=== PATIENT | female | born 1975 | race Caucasian/White ===

== ENCOUNTER 2019-09-27 16:40 | Inpatient (IN) | payer MEDICAID ==
[2019-09-27] VITALS (24 sets, daily range): BP systolic 119; BP diastolic 64; PULSE 96; TEMP 97.4; O2SAT 97–100
[~2019-09-27] VITALS: Ht 160 cm; Wt 54.5 kg
[~2019-09-27 16:40] MED LIST: AMITRIPTYLINE H25 M1 PO; BENADRYL25 M2 PO; CATAPRES 0.1MG0.1 MG PO; CULTURELLE10 Billion PO; FERROUS SULFATE65 MG PO; LEVSIN 0.10.125 MG/T PO; PERCOCET 325 MG1 TA3 PO; PHENERGAN 25 TA25 MG PO; PRILOSEC 20MG20 MG PO; SKELAXIN 800MG800 MG PO; VOLTAREN 50MG T50 MG PO; WELLBUTRIN SR150 M1 PO; ZADITOR 5 ML5 ML OU; ZOFRAN 4MG T4 MG/TAB PO; ZYRTEC ALLERGY10 MG PO
[2019-09-27 17:32] LABS: BASO # 0.1 (0.0-0.2); BASO % 0.3 % (0.0-2.0); EOS # 0.1 (0.0-0.7); EOS % 0.6 % (0-4.0); GRAN # 14.3 (1.4-6.5); GRAN % 88.8 % (42.2-75.2); HEMATOCRIT 38.9 % (37.0-47.0); HEMOGLOBIN 12.3 g/dl (12.5-16.0); LYMPH # 0.9 (1.2-3.4); LYMPH % 5.5 % (20.0-51.0); MEAN CELL VOLUME 88 fl (80.0-100.0); MEAN CORPUSCULAR HEMOGLOBIN 28 pg (27.0-31.0); MEAN CORPUSCULAR HGB CONC 32 g/dl (33.0-37.0); MEAN PLATELET VOLUME 8.9 fl (7.4-10.4); MONO # 0.6 (0.1-0.6); PLATELET COUNT 344 K/mm3 (130-400); RED BLOOD COUNT 4.41 M/mm3 (4.10-5.30); REDCELL DISTRIBUTION WIDTH-CV 13.9 % (11.5-14.5)
[2019-09-27] MEDS ORDERED: CANASA 1000MG1000 MG (17:37)
[2019-09-27] MEDS ORDERED: PREDNISONE1 MG (17:38)
[2019-09-27] MEDS ORDERED: PRINIVIL10 MG PO (17:38)
[2019-09-27] MEDS ORDERED: SKELAXIN 800MG800 MG PO (17:39)
[2019-09-27] MEDS ORDERED: NEURONTIN300 MG/CAP PO (17:39)
[2019-09-27] MEDS ORDERED: FIORICET 325 MG1 TA1 PO (17:40)
[2019-09-27] MEDS ORDERED: RESTORIL 1515 MG/CAP PO (17:40)
[2019-09-27 17:56] LABS: ALBUMIN 4.3 gm/dL (3.5-5.0); BILIRUBIN,TOTAL 0.3 mg/dL (0.0-1.0); C-REACTIVE PROTEIN 0.7 mg/dL (0.0-0.9); CALCIUM 8.9 mg/dL (8.4-10.2); CREATININE, serum 0.74 (0.52-1.25); POTASSIUM 3.9 mmol/L (3.4-5.0); TOTAL PROTEIN 7.4 gm/dL (6.4-8.2)
[2019-09-27 19:27] LABS: COLLECTION METHOD CLEAN CATCH
[2019-09-27 19:39] LABS: MUCOUS Present /lpf; PH 8 (5-8); URINE APPEARANCE Cloudy; URINE BACTERIA Moderate /hpf; URINE BILIRUBIN Negative (NEGATIVE); URINE BLOOD Negative (NEGATIVE); URINE COLOR Yellow; URINE GLUCOSE Negative (NEGATIVE); URINE KETONE Negative (NEGATIVE); URINE LEUKOCYTE ESTERASE Trace (NEGATIVE); URINE NITRATE Negative (NEGATIVE); URINE PROTEIN(semi-quant) Negative (NEGATIVE); URINE UROBILINOGEN Negative (NEGATIVE)
[2019-09-27 22:22] LABS: MAGNESIUM 2.1 mg/dL (1.6-2.3); PHOSPHOROUS 2.4 mg/dL (2.5-4.5)
[2019-09-27] MEDS ORDERED: BENTYL 20MG20 MG/TAB PO (22:26)
[2019-09-27] MEDS ORDERED: ERGOCALCIFER50000 IU PO (22:26)
[2019-09-27] MEDS ORDERED: WELLBUTRIN XL150 MG PO (22:28)
[2019-09-27] MEDS ORDERED: WELLBUTRIN XL300 M1 PO (22:28)
[2019-09-27] MEDS ORDERED: PRIL40 PO (22:32)
[2019-09-27] MEDS ORDERED: FERROUSAL325 MG PO (22:34)
[2019-09-27] MEDS ORDERED: MUCINEX 60600 MG/TA1 PO (22:36)
[2019-09-28] VITALS (767 sets, daily range): BP systolic 99–145; BP diastolic 70–76; PULSE 91–103; TEMP 97.7–98; O2SAT 83–100
[2019-09-28 02:29] LABS: BASO % 0.3 % (0.0-2.0); EOS # 0.2 (0.0-0.7); EOS % 1.3 % (0-4.0); GRAN # 10.9 (1.4-6.5); GRAN % 85.6 % (42.2-75.2); HEMATOCRIT 31.5 % (37.0-47.0); HEMOGLOBIN 9.8 g/dl (12.5-16.0); LYMPH % 7.6 % (20.0-51.0); MEAN CELL VOLUME 89 fl (80.0-100.0); MEAN CORPUSCULAR HEMOGLOBIN 28 pg (27.0-31.0); MEAN CORPUSCULAR HGB CONC 31 g/dl (33.0-37.0); MONO # 0.6 (0.1-0.6); MONO % 4.6 % (1.7-9.3); PLATELET COUNT 290 K/mm3 (130-400); RED BLOOD COUNT 3.53 M/mm3 (4.10-5.30); REDCELL DISTRIBUTION WIDTH-CV 14.2 % (11.5-14.5)
[2019-09-28 02:43] LABS: CALCIUM 7.8 mg/dL (8.4-10.2); CREATININE, serum 0.56 (0.52-1.25); POTASSIUM 3.7 mmol/L (3.4-5.0)
[2019-09-28 09:34] LABS: HEMOGLOBIN 10.2 g/dl (12.5-16.0)
[2019-09-28 09:57] LABS: HEMATOCRIT 33.2 % (37.0-47.0)
[2019-09-29] VITALS (568 sets, daily range): BP systolic 121–141; BP diastolic 68–92; PULSE 80–108; TEMP 97.8–98.6; O2SAT 88–100
[2019-09-29 03:41] LABS: BASO % 0.2 % (0.0-2.0); EOS # 0.1 (0.0-0.7); EOS % 1.7 % (0-4.0); GRAN # 6.5 (1.4-6.5); GRAN % 79.1 % (42.2-75.2); LYMPH # 1.1 (1.2-3.4); LYMPH % 12.7 % (20.0-51.0); MEAN CELL VOLUME 90 fl (80.0-100.0); MEAN CORPUSCULAR HGB CONC 31 g/dl (33.0-37.0); MEAN PLATELET VOLUME 8.8 fl (7.4-10.4); MONO # 0.5 (0.1-0.6); MONO % 5.8 % (1.7-9.3); PLATELET COUNT 261 K/mm3 (130-400); RED BLOOD COUNT 3.34 M/mm3 (4.10-5.30); REDCELL DISTRIBUTION WIDTH-CV 13.9 % (11.5-14.5)
[2019-09-29 03:42] LABS: HEMOGLOBIN 9.2 g/dl (12.5-16.0); MEAN CORPUSCULAR HEMOGLOBIN 28 pg (27.0-31.0)
[2019-09-29 03:53] LABS: CALCIUM 7.6 mg/dL (8.4-10.2); CREATININE, serum 0.54 (0.52-1.25); PHOSPHOROUS 2.4 mg/dL (2.5-4.5); POTASSIUM 3.2 mmol/L (3.4-5.0)
--- NOTE | 2019-09-29 16:46 | NUR ---
[employer] student met with the patient to complete initial intake. The patient lives in [place] with her and three kids. The patient denies DME usage and reports independence with ADLs. The patient receives medical care from Jack in and receives medications from [facility] in . The patient does not have advanced directives in the EMR. Form provided. The patient plans to return home at discharge. There are no additional needs at this time.
--- NOTE | 2019-09-29 19:30 | NUR ---
Received report from ADEN Farley.
[2019-09-30] VITALS (10 sets, daily range): BP systolic 122–148; BP diastolic 71–88; PULSE 71–98; TEMP 97.8–98.7
--- NOTE | 2019-09-30 05:52 | NUR ---
Report called to ADEN Uribe.
--- NOTE | 2019-09-30 06:20 | NUR ---
Patient transferred to medical room 317. Contact made with receiving nurse, Jojo. Care transferred at this time.
[2019-09-30 06:29] LABS: BASO % 0.3 % (0.0-2.0); EOS % 0.4 % (0-4.0); GRAN # 7.4 (1.4-6.5); GRAN % 72.5 % (42.2-75.2); LYMPH # 1.9 (1.2-3.4); MEAN CELL VOLUME 90 fl (80.0-100.0); MEAN CORPUSCULAR HGB CONC 31 g/dl (33.0-37.0); MEAN PLATELET VOLUME 9.2 fl (7.4-10.4); MONO # 0.7 (0.1-0.6); MONO % 7.2 % (1.7-9.3); PLATELET COUNT 278 K/mm3 (130-400); RED BLOOD COUNT 3.38 M/mm3 (4.10-5.30); REDCELL DISTRIBUTION WIDTH-CV 14.2 % (11.5-14.5)
[2019-09-30 06:43] LABS: ANION GAP 6 mmol/L (7-16); CARBON DIOXIDE 29 mmol/L (22-30); CHLORIDE 108 mmol/L (98-107); CREATININE, serum 0.57 (0.52-1.25); GLUCOSE 86 mg/dL (74-106); SODIUM 143 mmol/L (137-145)
[2019-09-30 06:47] LABS: BLOOD UREA NITROGEN < 2 mg/dL (7-17)
[2019-09-30 06:48] LABS: POTASSIUM 2.8 mmol/L (3.4-5.0)
[2019-09-30 06:54] LABS: HEMATOCRIT 30.3 % (37.0-47.0); HEMOGLOBIN 9.3 g/dl (12.5-16.0); MEAN CORPUSCULAR HEMOGLOBIN 28 pg (27.0-31.0)
--- NOTE | 2019-09-30 10:47 | NUR ---
Assessment complete. Pt resting in bed. States she is quite a bit of pain. PRN pain medication was provided. This helped. IV site is CD&I. PT has been done with bowel prep for colonoscopy since 0 this morning and has had approx 13 bowel movements since coming to the floor this morning, she states that have been clear. Endo is aware. Her is currently at the bedside. She is aware of her POC at this time. No further needs. Call light in place.
--- NOTE | 2019-09-30 17:23 | NUR ---
Pt had a good day aside from her pain. She tolerated the colonoscopy well. Was able to advance her diet as she was very hungry. PRN pain medication has been used throughout the day. has been at bedside most of the day. She is aware of what went on in the surgery. She showered this morning before her procedure. He potassium was originally IV due to NPO status but with the Magnesium as well and then her going to the procedure only one had been completed by about 1530. Called pharmacy and they were able to switch her to PO tablets to finish off the course. Will place order for lab to recheck in 3 hours after last admin. No further needs expressed call light in reach.
--- NOTE | 2019-09-30 21:00 | NUR ---
Received report from ADEN Chandra. Assessment complete. Alert and oriented. at bedside. C/O pain to abdomen, rate 7/10, describes pain as sharp, aching, rolling pain. PRN pain meds administered as requested by pt. Scheduled meds administered. IV to LAC intact with fluids infusing. Tele monitor in place, leads checked. Needs attended too. Call light within reach.
[2019-10-01 03:30] VITALS: BP 124/80; PULSE 83; TEMP 98.3
--- NOTE | 2019-10-01 04:08 | NUR ---
Pt informed this RN that she had small amount of blood on fingertips after applying hemorrhoid cream to anal area, no continuos bleeding noted. Pt to inform RN if further bleeding occurs. Pt requested PRN pain meds for abdominal pain, rate 7-8/10. PRN Dilaudid administered as requested. Needs met. call light within reach.
[2019-10-01 06:17] LABS: BASO % 0.3 % (0.0-2.0); EOS # 0.1 (0.0-0.7); EOS % 0.6 % (0-4.0); GRAN # 6.1 (1.4-6.5); GRAN % 76.5 % (42.2-75.2); LYMPH # 1.3 (1.2-3.4); LYMPH % 16.3 % (20.0-51.0); MEAN CELL VOLUME 90 fl (80.0-100.0); MEAN CORPUSCULAR HGB CONC 31 g/dl (33.0-37.0); MEAN PLATELET VOLUME 9.2 fl (7.4-10.4); MONO # 0.5 (0.1-0.6); MONO % 5.8 % (1.7-9.3); PLATELET COUNT 263 K/mm3 (130-400); RED BLOOD COUNT 3.49 M/mm3 (4.10-5.30); REDCELL DISTRIBUTION WIDTH-CV 14.3 % (11.5-14.5)
[2019-10-01 06:32] LABS: CALCIUM 8.4 mg/dL (8.4-10.2); CREATININE, serum 0.56 (0.52-1.25); HEMATOCRIT 31.4 % (37.0-47.0); HEMOGLOBIN 9.6 g/dl (12.5-16.0); MAGNESIUM 2.3 mg/dL (1.6-2.3); MEAN CORPUSCULAR HEMOGLOBIN 28 pg (27.0-31.0); POTASSIUM 3.1 mmol/L (3.4-5.0)
--- NOTE | 2019-10-01 06:32 | NUR ---
Pt requested PRN [place] for abdominal pain. PRN [place] and PRn Zanaflex administered as requested by pt. Needs met.Call light within reach. at bedside.
[2019-10-01 07:02] VITALS: BP 147/85; PULSE 65; TEMP 98.4
--- NOTE | 2019-10-01 07:04 | NUR ---
Report given to ADEN Juares.
--- NOTE | 2019-10-01 07:50 | NUR ---
Lying in bed with eyes open. Alert and oriented x4. Rates pain 4/10 in abd, describes as crampy, sharp, rolling, piercing pain when it acts up. No stools this morning. Denies needs at this time.
--- NOTE | 2019-10-01 10:00 | NUR ---
Patient attempted to get to bathroom to have BM but it was loose and did not make it completely to bathroom. Assisted in cleaning up. Patient did have loose stool with separate blood clots in the stool. Dr. Flores was making rounds and is aware. Patient requests pain medication via IV at this time. Student nurse to administer.
--- NOTE | 2019-10-01 10:35 | NUR ---
Student nurse, Cira, administers Dilaudid as prescribed. Patient would like to rest in bed and once the medication begins to work would like to take shower.
--- NOTE | 2019-10-01 11:26 | NUR ---
Patient done in shower. Tele and IV fluids reconnected. Rating pain in abd 4/10, which she says is tolerable at this time. Patient denies further needs.
--- NOTE | 2019-10-01 11:52 | NUR ---
Continues to rate pain 4/10 in abd and describes as crapmy. Patient denies any needs at this time.
[2019-10-01 12:20] VITALS: BP 136/84; PULSE 74; TEMP 98.4
--- NOTE | 2019-10-01 12:39 | NUR ---
Nya adminsitered by student nurse, Cira, per patient request as prescribed.
--- NOTE | 2019-10-01 13:59 | NUR ---
Primary nurse was assisted with [phone] patient care by [facility] student Cira Sharif and [facility] instructor Orquidea Cancino RN-.
[2019-10-01] MEDS ORDERED: NORCO 325 MG-51 TAB PO (15:20)
[2019-10-01] MEDS ORDERED: PREDNISONE20 MG PO (15:20)
[2019-10-01] MEDS ORDERED: DIFLUCAN150 MG PO (15:40)
[2019-10-01] MEDS ORDERED: LEVAQUIN 750MG750 M1 PO (15:40)
[2019-10-01] MEDS ORDERED: FLAGYL500 MG PO (15:40)
--- NOTE | 2019-10-01 16:06 | NUR ---
IV site discontinued with catheter intact. Applied 2x2 to site and reinforced with coban. Patient to get dressed at this time for discharge.
--- NOTE | 2019-10-01 16:16 | NUR ---
Discharge instructions reviewed with the patient. Questions answered. Patient signs discharge paperwork. Discharge packet provided to the patient. Patient will use call light when spouse arrives to pick her up. Denies needs at this time.
--- NOTE | 2019-10-01 16:45 | NUR ---
Patient spouse here to take patient home. Patient assisted out to POV via wheelchair by IAIN Jara.
== END 2019-10-01 16:46 | disposition home or self-care (01) | DRG 385 ==
LOC: COL.ER 16:40 → IMCU 20:09 → MEDICAL 20:09
PROVIDERS: Emergency Medicine; Internal Medicine; Internal Medicine Gastroenterology; Nurse Practitioner Family; Physician Assistant; ADMIT Student in an Organized Health Care Education/Training Program
PROC: 0DBL8ZX Excision of Transverse Colon, Via Natural or Artificial Opening Endoscopic, Diagnostic (ICD-10-PCS; 2019-09-30)
PROC: 0DBN8ZX Excision of Sigmoid Colon, Via Natural or Artificial Opening Endoscopic, Diagnostic (ICD-10-PCS; 2019-09-30)
PROC: 0DBH8ZX Excision of Cecum, Via Natural or Artificial Opening Endoscopic, Diagnostic (ICD-10-PCS; principal; 2019-09-30 14:00)
DX: K51.811 Other ulcerative colitis with rectal bleeding (principal); A41.9 Sepsis, unspecified organism; Z79.52 Long term (current) use of systemic steroids; Z86.19 Personal history of other infectious and parasitic diseases; N83.202 Unspecified ovarian cyst, left side; I10 Essential (primary) hypertension; F32.9 Major depressive disorder, single episode, unspecified; K21.9 Gastro-esophageal reflux disease without esophagitis; E87.6 Hypokalemia; D50.0 Iron deficiency anemia secondary to blood loss (chronic); E83.42 Hypomagnesemia
CPT/HCPCS: 99222-AI; 99231-AI; 99232-AI; 99239; C9113; J1170; J1450; J1720; J1956; J2405; J2704; J3010; J3475; J3480; J7030; Q9967

== ENCOUNTER 2020-03-01 16:32 | Inpatient (IN) | payer MEDICAID ==
[~2020-03-01] VITALS: Ht 160 cm; Wt 78.7 kg
[~2020-03-01 16:32] MED LIST changes: +BENTYL 20MG20 MG/TAB PO; +CANASA 1000MG1000 MG; +DIFLUCAN150 MG PO; +ERGOCALCIFER50000 IU PO; +FERROUSAL325 MG PO; +FIORICET 325 MG1 TA1 PO; +FLAGYL500 MG PO; +LEVAQUIN 750MG750 M1 PO; +MUCINEX 60600 MG/TA1 PO; +NEURONTIN300 MG/CAP PO; +NORCO 325 MG-51 TAB PO; +PREDNISONE1 MG; +PREDNISONE20 MG PO; +PRIL40 PO; +PRINIVIL10 MG PO; +RESTORIL 1515 MG/CAP PO; +VANCOCIN H125 MG/CAP PO; +VITAMIN C500 MG PO; +WELLBUTRIN XL150 MG PO; +WELLBUTRIN XL300 M1 PO
[2020-03-01 17:18] LABS: BASO % 0.5 % (0.0-2.0); EOS # 0.1 (0.0-0.7); EOS % 1.4 % (0-4.0); GRAN # 5.3 (1.4-6.5); GRAN % 66.9 % (42.2-75.2); HEMATOCRIT 40.1 % (37.0-47.0); HEMOGLOBIN 13.1 g/dl (12.5-16.0); LYMPH # 1.8 (1.2-3.4); LYMPH % 23.2 % (20.0-51.0); MEAN CELL VOLUME 91 fl (80.0-100.0); MEAN CORPUSCULAR HEMOGLOBIN 30 pg (27.0-31.0); MEAN CORPUSCULAR HGB CONC 33 g/dl (33.0-37.0); MEAN PLATELET VOLUME 10.2 fl (7.4-10.4); MONO # 0.6 (0.1-0.6); MONO % 7.6 % (1.7-9.3); PLATELET COUNT 283 K/mm3 (130-400); RED BLOOD COUNT 4.39 M/mm3 (4.10-5.30); REDCELL DISTRIBUTION WIDTH-CV 14.1 % (11.5-14.5)
[2020-03-01 17:25] LABS: ALANINE AMINOTRANSFERASE 14 U/L (4-34); ALBUMIN 4.4 gm/dL (3.5-5.0); ALKALINE PHOSPHATASE 65 U/L (50-136); ANION GAP 9 mmol/L (7-16); AST,SGOT 17 U/L (15-37); BILIRUBIN,TOTAL 0.3 mg/dL (0.0-1.0); BLOOD UREA NITROGEN 6 mg/dL (7-17); CARBON DIOXIDE 25 mmol/L (22-30); CHLORIDE 107 mmol/L (98-107); CREATININE, serum 0.77 (0.52-1.25); GLUCOSE 112 mg/dL (74-106); LIPASE 78 U/L (23-300); POTASSIUM 3.3 mmol/L (3.4-5.0); SODIUM 140 mmol/L (137-145); TOTAL PROTEIN 7.6 gm/dL (6.4-8.2)
[2020-03-01 17:30] LABS: C-REACTIVE PROTEIN < 0.5 mg/dL (0.0-0.9)
[2020-03-01 17:46] LABS: COLLECTION METHOD CLEAN CATCH
[2020-03-01 17:54] LABS: PH 6 (5-8); SQUAMOUS EPITHELIAL 0-2 /hpf; URINE APPEARANCE Hazy; URINE BACTERIA Many /hpf; URINE BILIRUBIN Negative (NEGATIVE); URINE BLOOD Negative (NEGATIVE); URINE COLOR Straw; URINE GLUCOSE Negative (NEGATIVE); URINE KETONE Negative (NEGATIVE); URINE LEUKOCYTE ESTERASE Negative (NEGATIVE); URINE NITRATE Negative (NEGATIVE); URINE PROTEIN(semi-quant) Negative (NEGATIVE); URINE UROBILINOGEN Negative (NEGATIVE)
[2020-03-01] MEDS ORDERED: HUMIRA PEN40 MG/0.4 SQ (19:53)
[2020-03-01] MEDS ORDERED: PENTASA500 MG PO (19:53)
[2020-03-01] MEDS ORDERED: IMODIUM 2MG CAPS2 MG PO (19:54)
[2020-03-01] MEDS ORDERED: LOMOTIL 0.025 M1 TAB PO (19:54)
[2020-03-01] MEDS ORDERED: RESTORIL 1515 MG/CAP PO (19:55)
[2020-03-01] MEDS ORDERED: LIPITOR20 MG PO (19:55)
[2020-03-01] MEDS ORDERED: ISOPTIN SR120 MG PO (19:56)
[2020-03-01] MEDS ORDERED: FIORICET 325 MG1 TA1 PO (19:57)
[2020-03-01] MEDS ORDERED: WELLBUTRIN XL300 M1 PO (19:57)
[2020-03-01] MEDS ORDERED: MASON NATURAL2000 IU PO (19:59)
--- NOTE | 2020-03-01 20:30 | NUR ---
Received patient via wheelchair from ED. Patient is alert and oriented. With INT on left AC. She is independent. On room air. Assesment and med rec done. Lungs are clear. With abdominal pain at 6/10. Dilaudid given at ER at 2000H. Instructed patient to use the hat in the toilet for GI panel sample. Call light within reach.
[2020-03-01 21:35] VITALS: BP 135/84; PULSE 90; TEMP 98.3
[2020-03-01 22:57] LABS: BASO # 0.1 (0.0-0.2); BASO % 0.4 % (0.0-2.0); GRAN # 12.7 (1.4-6.5); GRAN % 92.7 % (42.2-75.2); HEMATOCRIT 38.4 % (37.0-47.0); HEMOGLOBIN 12.6 g/dl (12.5-16.0); LYMPH # 0.7 (1.2-3.4); LYMPH % 5.3 % (20.0-51.0); MEAN CELL VOLUME 91 fl (80.0-100.0); MEAN CORPUSCULAR HEMOGLOBIN 30 pg (27.0-31.0); MEAN CORPUSCULAR HGB CONC 33 g/dl (33.0-37.0); MEAN PLATELET VOLUME 10.2 fl (7.4-10.4); MONO # 0.2 (0.1-0.6); MONO % 1.2 % (1.7-9.3); PLATELET COUNT 263 K/mm3 (130-400); REDCELL DISTRIBUTION WIDTH-CV 14.2 % (11.5-14.5)
[2020-03-02] VITALS (7 sets, daily range): BP systolic 132–157; BP diastolic 75–99; PULSE 80–97; TEMP 97.3–98.2
--- NOTE | 2020-03-02 06:14 | NUR ---
Patient haven't had any bowel movement since she came up from ER. She did say taht she feels like her abdomen is starting to swell again and she received Decadron at the ER. Informed Monique PEREZ via phone call and said that since she didn't poop yet they don't want to give any steroids for now. Explained to patient and she verbalizes understanding.
[2020-03-02 07:47] LABS: CALCIUM 9.1 mg/dL (8.4-10.2); CREATININE, serum 0.6 (0.52-1.25); POTASSIUM 3.9 mmol/L (3.4-5.0)
--- NOTE | 2020-03-02 09:21 | NUR ---
Pt awake and alert upon entry this morning, has some C/O pain, medications given for relief, talkative. Shift assessments complete, left Pt call light in reach, bed in lowest position.
--- NOTE | 2020-03-02 13:06 | NUR ---
Pt has C/O pain 02/03, pain medication given for relief.
--- NOTE | 2020-03-02 15:06 | NUR ---
The patient is on contact precautions. SW contacted the patient to discuss discharge plan. The patient lives in [place] with her , Jani (ph#[phone]), and three children. She reports needing occasional assistance with ADLs when her Crohn's flairs up. She states that her is able to help her, when she does have a flair up. She does not have any DME. The patient's PCP is Dr. Maia Alfonso and she receives her medications at [facility] in [place]. She reports no difficulties obtaining her meds. The patient does not have advanced directives, but she was interested in obtaining a form for DPOA-HC. MOO provided the form to her RN, Ar. Ar brought the form into the patient. The patient plans to return home with her family upon discharge. No additional needs at this time.
--- NOTE | 2020-03-02 19:00 | NUR ---
Received report from Ar. Seen patient on the bedside, eating her dinner. She's currently on bowel prep. Instructed patient she's NPO midnight except for bowel prep. With IV on left AC infusing LR at 150ml/hr.
--- NOTE | 2020-03-02 19:12 | NUR ---
Pt resting in the room, has had some C/O pain and nausea during the day, no other issues noted, first part of bowel prep for colonoscopy started this evening. VS have remained stable.
--- NOTE | 2020-03-02 20:10 | NUR ---
Patient complains of pain 9/10, after having a bowel movement. Dilaudid PRN given.
[2020-03-03 03:38] VITALS: BP 146/89; PULSE 75; TEMP 98
--- NOTE | 2020-03-03 06:23 | NUR ---
Patient had finished her bowel prep and had a clear bowel movement. Consent has been signed last night. Still with abdominal pain of 6/10. Will endorse to day shift nurse.
--- NOTE | 2020-03-03 08:14 | NUR ---
Pt awake an alert this morning, fluids changed to NS for procedure, medications given with sip of water, bowel prep complete, Pt clear. Shift assessment complete, left Pt call light in reach, bed in lowest position.
[2020-03-03 10:37] LABS: HEMATOCRIT 38.7 % (37.0-47.0); HEMOGLOBIN 12.3 g/dl (12.5-16.0); MEAN CELL VOLUME 94 fl (80.0-100.0); MEAN CORPUSCULAR HEMOGLOBIN 30 pg (27.0-31.0); MEAN CORPUSCULAR HGB CONC 32 g/dl (33.0-37.0); MEAN PLATELET VOLUME 10.3 fl (7.4-10.4); PLATELET COUNT 244 K/mm3 (130-400); RED BLOOD COUNT 4.11 M/mm3 (4.10-5.30); REDCELL DISTRIBUTION WIDTH-CV 14.6 % (11.5-14.5)
[2020-03-03 10:47] LABS: ALANINE AMINOTRANSFERASE 16 U/L (4-34); ALBUMIN 4.2 gm/dL (3.5-5.0); ALKALINE PHOSPHATASE 65 U/L (50-136); ANION GAP 8 mmol/L (7-16); AST,SGOT 17 U/L (15-37); BILIRUBIN,TOTAL 0.3 mg/dL (0.0-1.0); BLOOD UREA NITROGEN < 2 mg/dL (7-17); CALCIUM 8.8 mg/dL (8.4-10.2); CARBON DIOXIDE 25 mmol/L (22-30); CHLORIDE 107 mmol/L (98-107); CREATININE, serum 0.51 (0.52-1.25); GLUCOSE 96 mg/dL (74-106); MAGNESIUM 1.7 mg/dL (1.6-2.3); PHOSPHOROUS 3.4 mg/dL (2.5-4.5); POTASSIUM 3.6 mmol/L (3.4-5.0); SODIUM 140 mmol/L (137-145); TOTAL PROTEIN 7.2 gm/dL (6.4-8.2)
[2020-03-03 12:30] VITALS: BP 135/87; PULSE 74; TEMP 98
[2020-03-03 16:22] VITALS: BP 140/77; PULSE 82; TEMP 98.3
[2020-03-03 20:00] VITALS: BP 136/86; PULSE 81; TEMP 98
--- NOTE | 2020-03-03 20:30 | NUR ---
Initial shift assessment done- states abd pain 8/10,visibly uncomfortable, will give pain meds as ordered, VSS, states continues with liquid clear stools since her colonsocopy.
[2020-03-03 23:23] VITALS: BP 127/66; PULSE 84; TEMP 97.9
[2020-03-04 03:48] VITALS: BP 119/65; PULSE 77; TEMP 97.8
--- NOTE | 2020-03-04 05:39 | NUR ---
Quiet night- states pain meds help keep her abd pain to 4/10 which helped her to get some sleep-VSS, no requests at this time
[2020-03-04 06:57] LABS: BASO % 0.4 % (0.0-2.0); EOS % 0.4 % (0-4.0); GRAN # 6.7 (1.4-6.5); HEMOGLOBIN 11.9 g/dl (12.5-16.0); LYMPH # 1.1 (1.2-3.4); LYMPH % 12.9 % (20.0-51.0); MEAN CELL VOLUME 93 fl (80.0-100.0); MEAN CORPUSCULAR HEMOGLOBIN 30 pg (27.0-31.0); MEAN CORPUSCULAR HGB CONC 33 g/dl (33.0-37.0); MEAN PLATELET VOLUME 10.6 fl (7.4-10.4); MONO # 0.4 (0.1-0.6); MONO % 4.8 % (1.7-9.3); PLATELET COUNT 232 K/mm3 (130-400); RED BLOOD COUNT 3.92 M/mm3 (4.10-5.30); REDCELL DISTRIBUTION WIDTH-CV 14.6 % (11.5-14.5)
[2020-03-04 07:14] LABS: ALBUMIN 3.9 gm/dL (3.5-5.0); BILIRUBIN,TOTAL 0.3 mg/dL (0.0-1.0); CALCIUM 8.8 mg/dL (8.4-10.2); CREATININE, serum 0.58 (0.52-1.25); MAGNESIUM 1.8 mg/dL (1.6-2.3); PHOSPHOROUS 3.6 mg/dL (2.5-4.5); POTASSIUM 3.5 mmol/L (3.4-5.0); TOTAL PROTEIN 6.6 gm/dL (6.4-8.2)
[2020-03-04 07:35] LABS: HEMATOCRIT 36.6 % (37.0-47.0)
--- NOTE | 2020-03-04 08:18 | NUR ---
PATIENT ASSESSMENT COMPLETED. SHE COMPLAINS OF LOWER ABDOMEN PAIN. PRN DILAUDID GIVEN FOR THIS. DENIES NAUSEA AT THIS TIME.
[2020-03-04 08:20] VITALS: BP 127/72; PULSE 78; TEMP 98
--- NOTE | 2020-03-04 10:52 | NUR ---
PATIENT REQUEST ANOTHER PAIN PILL HAS TAKEN HER SHOWER AND IS HURTING. HAVING MULTIPLE LOOSE STOOLS
[2020-03-04 11:39] VITALS: BP 120/76; PULSE 84; TEMP 98.5
--- NOTE | 2020-03-04 14:31 | NUR ---
PRN LOMITOL AND IMMODIUM GIVEN PER DR. ANGEL OK.
--- NOTE | 2020-03-04 15:09 | NUR ---
PATIENT RESTING IN BED TALKING ON PHONE WITH . DENIES OTHER NEEDS AT THIS TIME. WATER REFILLED.
[2020-03-04 16:39] VITALS: BP 132/79; PULSE 90; TEMP 97.5
--- NOTE | 2020-03-04 17:28 | NUR ---
REQUESTED NORCO PROVIDED AT THIS TIME
[2020-03-04 19:54] VITALS: BP 112/60; PULSE 86; TEMP 98.1
--- NOTE | 2020-03-04 20:30 | NUR ---
Initial shift assessment done- states abd pain 4/10-tolerable at this time,, VSS,given immodium amd lomotil prn for liquid stools-states that is what works for her at home,,, hoping to go home tomorrow.
[2020-03-04 23:55] VITALS: BP 142/88; PULSE 77; TEMP 98.1
[2020-03-05 04:05] VITALS: BP 123/74; PULSE 91; TEMP 97.4
--- NOTE | 2020-03-05 05:28 | NUR ---
Quiet night- did get [place] x1 during this shift for abd pain , pt states diarrhea is less frequent and less intensity with the lomotil and immodium. VSS
[2020-03-05 07:43] VITALS: BP 127/84; PULSE 81; TEMP 97.7
--- NOTE | 2020-03-05 08:21 | NUR ---
PATIENT ASSESSMENT COMPLETED. SHE FEELS ALOT BETTER. PRN NORCO PROVIDED FOR PAIN.
[2020-03-05 08:25] LABS: BASO % 0.2 % (0.0-2.0); EOS % 0.1 % (0-4.0); GRAN # 11.8 (1.4-6.5); GRAN % 85.7 % (42.2-75.2); HEMATOCRIT 39.7 % (37.0-47.0); HEMOGLOBIN 13.1 g/dl (12.5-16.0); LYMPH # 1.1 (1.2-3.4); LYMPH % 7.7 % (20.0-51.0); MEAN CELL VOLUME 94 fl (80.0-100.0); MEAN CORPUSCULAR HEMOGLOBIN 31 pg (27.0-31.0); MEAN CORPUSCULAR HGB CONC 33 g/dl (33.0-37.0); MEAN PLATELET VOLUME 11.2 fl (7.4-10.4); MONO # 0.8 (0.1-0.6); MONO % 5.8 % (1.7-9.3); PLATELET COUNT 253 K/mm3 (130-400); RED BLOOD COUNT 4.24 M/mm3 (4.10-5.30); REDCELL DISTRIBUTION WIDTH-CV 14.6 % (11.5-14.5)
[2020-03-05 08:50] LABS: ALBUMIN 4.5 gm/dL (3.5-5.0); BILIRUBIN,TOTAL 0.3 mg/dL (0.0-1.0); CREATININE, serum 0.51 (0.52-1.25); MAGNESIUM 2.1 mg/dL (1.6-2.3); PHOSPHOROUS 3.9 mg/dL (2.5-4.5); POTASSIUM 3.8 mmol/L (3.4-5.0); TOTAL PROTEIN 7.7 gm/dL (6.4-8.2)
[2020-03-05] MEDS ORDERED: DIFLUCAN 100MG100 MG PO (10:14)
[2020-03-05] MEDS ORDERED: NORCO 325 MG-51 TAB PO (10:15)
[2020-03-05] MEDS ORDERED: PREDNISONE20 MG PO (10:19)
--- NOTE | 2020-03-05 11:05 | NUR ---
DISCHARGE INFORMATION GIVEN TO PATIENT. SHE DENIES QUESTIONS ABOUT DISCHARGE. SHE WILL MAKE FOLLOW UPS WITH DR. EMIL SIMMONS AND DR. WEISS. IV DC WITH CATH INTACT. PATIENT TO THE SHOWER PER REQUEST
--- NOTE | 2020-03-05 11:50 | NUR ---
PATIENT DISCHARGED TO HOME WITH BELONGINGS. BROUGHT TO THE ER DOOR AND PICKED HER UP. NO OTHER NEEDS EXPRESSED
== END 2020-03-05 11:50 | disposition home or self-care (01) | DRG 387 ==
LOC: COL.ER 16:32 → MEDICAL 18:41
PROVIDERS: Family Medicine; Nurse Practitioner Family; Student in an Organized Health Care Education/Training Program; ADMIT Student in an Organized Health Care Education/Training Program
PROC: 0DBN8ZX Excision of Sigmoid Colon, Via Natural or Artificial Opening Endoscopic, Diagnostic (ICD-10-PCS; principal; 2020-03-01)
DX: K50.90 Crohn's disease, unspecified, without complications (principal); F32.9 Major depressive disorder, single episode, unspecified; I10 Essential (primary) hypertension; E78.5 Hyperlipidemia, unspecified; K52.9 Noninfective gastroenteritis and colitis, unspecified; K60.1 Chronic anal fissure; K64.2 Third degree hemorrhoids; Z90.710 Acquired absence of both cervix and uterus; Z90.89 Acquired absence of other organs; Z90.49 Acquired absence of other specified parts of digestive tract; E87.6 Hypokalemia; K21.9 Gastro-esophageal reflux disease without esophagitis
CPT/HCPCS: 99223-AI; 99232-AI; 99233-AI; 99239; C9113; J1100; J1170; J2250; J2270; J2405; J2550; J2704; J2920; J3010; J3480; J7030; J7120; J7512; Q9967

== ENCOUNTER 2020-03-14 15:24 | Outpatient (CLI) | payer MEDICAID ==
[~2020-03-14] VITALS: Ht 160 cm; Wt 79.8 kg
[~2020-03-14 15:24] MED LIST changes: +DIFLUCAN 100MG100 MG PO; +HUMIRA PEN40 MG/0.4 SQ; +IMODIUM 2MG CAPS2 MG PO; +ISOPTIN SR120 MG PO; +LIPITOR20 MG PO; +LOMOTIL 0.025 M1 TAB PO; +MASON NATURAL2000 IU PO; +PENTASA500 MG PO
[2020-03-14 15:44] VITALS: BP 129/89; PULSE 107; TEMP 98.7
[2020-03-14] MEDS ORDERED: PREDNISONE20 MG PO (15:46)
[2020-03-14 17:00] VITALS: BP 125/84; PULSE 94
== END 2020-03-14 17:23 | disposition home or self-care (01) ==
LOC: EUO 15:24
DX: E86.0 Dehydration (principal); I95.1 Orthostatic hypotension
CPT/HCPCS: J7030

== ENCOUNTER 2021-01-03 16:16 | Emergency (ER) | payer MEDICAID ==
[~2021-01-03] VITALS: Ht 160 cm; Wt 89.1 kg
[2021-01-03 16:23] VITALS: TEMP 98.1
[2021-01-03 17:38] LABS: COLLECTION METHOD CLEAN CATCH
[2021-01-03 17:43] LABS: BASO # 0.1 (0.0-0.2); BASO % 0.6 % (0.0-2.0); EOS # 0.2 (0.0-0.7); EOS % 2.4 % (0-4.0); GRAN # 4.8 (1.4-6.5); GRAN % 54.7 % (42.2-75.2); HEMOGLOBIN 10.2 g/dl (12.5-16.0); LYMPH # 2.7 (1.2-3.4); LYMPH % 30.6 % (20.0-51.0); MEAN CELL VOLUME 82 fl (80.0-100.0); MEAN CORPUSCULAR HEMOGLOBIN 25 pg (27.0-31.0); MEAN CORPUSCULAR HGB CONC 30 g/dl (33.0-37.0); MEAN PLATELET VOLUME 9.5 fl (7.4-10.4); MONO % 11.4 % (1.7-9.3); PLATELET COUNT 289 K/mm3 (130-400); RED BLOOD COUNT 4.15 M/mm3 (4.10-5.30)
[2021-01-03 17:48] LABS: PH 5 (5-8); SQUAMOUS EPITHELIAL 0-2 /hpf; URINE APPEARANCE Clear; URINE BACTERIA Rare /hpf; URINE BILIRUBIN Negative (NEGATIVE); URINE BLOOD Negative (NEGATIVE); URINE COLOR Straw; URINE GLUCOSE Negative (NEGATIVE); URINE KETONE Negative (NEGATIVE); URINE LEUKOCYTE ESTERASE Negative (NEGATIVE); URINE NITRATE Negative (NEGATIVE); URINE PROTEIN(semi-quant) Negative (NEGATIVE); URINE RBC 0-2 /hpf; URINE UROBILINOGEN Negative (NEGATIVE)
[2021-01-03 17:51] LABS: ALANINE AMINOTRANSFERASE 21 U/L (4-34); ALKALINE PHOSPHATASE 85 U/L (50-136); ANION GAP 5 mmol/L (7-16); AST,SGOT 20 U/L (15-37); BILIRUBIN,TOTAL < 0.1 mg/dL (0.0-1.0); BLOOD UREA NITROGEN 9 mg/dL (7-17); CALCIUM 8.9 mg/dL (8.4-10.2); CARBON DIOXIDE 26 mmol/L (22-30); CHLORIDE 107 mmol/L (98-107); CREATININE, serum 0.74 (0.52-1.25); GLUCOSE 92 mg/dL (74-106); POTASSIUM 3.4 mmol/L (3.4-5.0); SODIUM 138 mmol/L (137-145); TOTAL PROTEIN 7.5 gm/dL (6.4-8.2)
[2021-01-03 18:04] LABS: LIPASE 31 U/L (23-300)
[2021-01-03 18:07] LABS: C-REACTIVE PROTEIN < 0.5 mg/dL (0.0-0.9)
[2021-01-03] MEDS ORDERED: ZOFRAN 4MG T4 MG/TAB PO (19:15)
[2021-01-03 19:38] VITALS: BP 130/93; PULSE 98
[2021-01-04] MEDS ORDERED: PROTONIX 40MG T40 MG PO (18:21)
[2021-01-04] MEDS ORDERED: RESTASIS MULTI5.5 ML OP (18:22)
[2021-01-04] MEDS ORDERED: PREDNISONE20 MG PO (21:38)
== END 2021-01-03 19:38 | disposition home or self-care (01) ==
LOC: COL.ER 16:16
PROVIDERS: Nurse Practitioner Primary Care
DX: K50.90 Crohn's disease, unspecified, without complications (principal); I10 Essential (primary) hypertension; K51.90 Ulcerative colitis, unspecified, without complications; Z32.02 Encounter for pregnancy test, result negative; Z90.710 Acquired absence of both cervix and uterus; Z79.899 Other long term (current) drug therapy
CPT/HCPCS: J2270; J7030

== ENCOUNTER 2021-01-04 17:02 | Emergency (ER) | payer MEDICAID ==
[~2021-01-04] VITALS: Ht 160 cm; Wt 89.1 kg
[2021-01-04 17:15] VITALS: TEMP 98.6
[2021-01-04 18:08] LABS: BASO % 0.4 % (0.0-2.0); EOS # 0.2 (0.0-0.7); EOS % 1.5 % (0-4.0); GRAN # 7.8 (1.4-6.5); GRAN % 74.5 % (42.2-75.2); LYMPH # 1.7 (1.2-3.4); LYMPH % 16.1 % (20.0-51.0); MEAN CELL VOLUME 80 fl (80.0-100.0); MEAN CORPUSCULAR HEMOGLOBIN 24 pg (27.0-31.0); MEAN CORPUSCULAR HGB CONC 30 g/dl (33.0-37.0); MEAN PLATELET VOLUME 9.4 fl (7.4-10.4); MONO # 0.7 (0.1-0.6); MONO % 7.1 % (1.7-9.3); PLATELET COUNT 292 K/mm3 (130-400); RED BLOOD COUNT 4.58 M/mm3 (4.10-5.30); REDCELL DISTRIBUTION WIDTH-CV 15.9 % (11.5-14.5)
[2021-01-04 18:17] LABS: HEMATOCRIT 36.6 % (37.0-47.0)
[2021-01-04] MEDS ORDERED: PROTONIX 40MG T40 MG PO (18:21)
[2021-01-04] MEDS ORDERED: RESTASIS MULTI5.5 ML OP (18:22)
[2021-01-04 19:12] LABS: ALBUMIN 4.3 gm/dL (3.5-5.0); BILIRUBIN,TOTAL 0.3 mg/dL (0.0-1.0); CALCIUM 9.7 mg/dL (8.4-10.2); CREATININE, serum 0.75 (0.52-1.25); POTASSIUM 3.7 mmol/L (3.4-5.0); TOTAL PROTEIN 7.9 gm/dL (6.4-8.2)
[2021-01-04 21:07] LABS: COLLECTION METHOD CLEAN CATCH
[2021-01-04 21:23] LABS: MUCOUS Present /lpf; PH 5 (5-8); URINE APPEARANCE Hazy; URINE BACTERIA Many /hpf; URINE BILIRUBIN Negative (NEGATIVE); URINE BLOOD Negative (NEGATIVE); URINE COLOR Yellow; URINE GLUCOSE Negative (NEGATIVE); URINE KETONE Negative (NEGATIVE); URINE LEUKOCYTE ESTERASE Negative (NEGATIVE); URINE NITRATE Negative (NEGATIVE); URINE PROTEIN(semi-quant) Negative (NEGATIVE); URINE UROBILINOGEN Negative (NEGATIVE)
[2021-01-04] MEDS ORDERED: PREDNISONE20 MG PO (21:38)
[2021-01-04 21:57] VITALS: BP 119/56; PULSE 95
== END 2021-01-04 22:00 | disposition home or self-care (01) ==
LOC: COL.ER 17:02
PROVIDERS: Nurse Practitioner
DX: K50.90 Crohn's disease, unspecified, without complications (principal); I10 Essential (primary) hypertension; M35.2 Behcet's disease; K51.90 Ulcerative colitis, unspecified, without complications; Z90.710 Acquired absence of both cervix and uterus; Z90.49 Acquired absence of other specified parts of digestive tract; Z79.899 Other long term (current) drug therapy
CPT/HCPCS: J2270; J2550; J3010; J7030; J7512

== ENCOUNTER 2021-05-01 15:26 | Emergency (ER) | payer MEDICAID ==
[~2021-05-01] VITALS: Ht 160 cm; Wt 86.4 kg
[~2021-05-01 15:26] MED LIST changes: +PROTONIX 40MG T40 MG PO; +RESTASIS MULTI5.5 ML OP
[2021-05-01 16:02] VITALS: TEMP 98.5
[2021-05-01 18:27] LABS: BASO # 0.1 K/mm3 (0.0-0.2); BASO % 0.5 % (0.0-2.0); EOS # 0.5 K/mm3 (0.0-0.7); EOS % 4.5 % (0-4.0); GRAN # 7.7 K/mm3 (1.4-6.5); GRAN % 69.1 % (42.2-75.2); HEMATOCRIT 44.1 % (37.0-47.0); HEMOGLOBIN 14.3 g/dl (12.5-16.0); LYMPH # 2.1 K/mm3 (1.2-3.4); LYMPH % 18.6 % (20.0-51.0); MEAN CELL VOLUME 93 fl (80.0-100.0); MEAN CORPUSCULAR HEMOGLOBIN 30 pg (27.0-31.0); MEAN CORPUSCULAR HGB CONC 32 g/dl (33.0-37.0); MONO # 0.8 K/mm3 (0.1-0.6); PLATELET COUNT 200 K/mm3 (130-400); RED BLOOD COUNT 4.77 M/mm3 (4.10-5.30); REDCELL DISTRIBUTION WIDTH-CV 14.3 % (11.5-14.5)
[2021-05-01 19:11] LABS: ALBUMIN 3.4 gm/dL (3.5-5.0); BILIRUBIN,TOTAL 0.1 mg/dL (0.2-1.2); CALCIUM 7.8 mg/dL (8.4-10.2); CREATININE, serum 0.77 mg/dL (0.57-1.11); POTASSIUM 3.9 mmol/L (3.5-4.5); TOTAL PROTEIN 6.5 gm/dL (6.2-8.1)
[2021-05-01 19:25] LABS: COLLECTION METHOD CLEAN CATCH
[2021-05-01 19:33] LABS: MUCOUS Present /lpf; PH 5 (5-8); SQUAMOUS EPITHELIAL 0-2 /hpf; URINE APPEARANCE Hazy; URINE BACTERIA Rare /hpf; URINE BILIRUBIN Negative (NEGATIVE); URINE BLOOD Negative (NEGATIVE); URINE COLOR Yellow; URINE GLUCOSE Negative (NEGATIVE); URINE KETONE Negative (NEGATIVE); URINE LEUKOCYTE ESTERASE Negative (NEGATIVE); URINE NITRATE Negative (NEGATIVE); URINE PROTEIN(semi-quant) Negative (NEGATIVE); URINE UROBILINOGEN Negative (NEGATIVE)
[2021-05-01 20:03] VITALS: BP 134/78; PULSE 89
== END 2021-05-01 19:51 | disposition home or self-care (01) ==
LOC: COL.ER 15:26
PROVIDERS: Emergency Medicine; Physician Assistant
DX: K50.90 Crohn's disease, unspecified, without complications (principal); M35.2 Behcet's disease; Z90.49 Acquired absence of other specified parts of digestive tract
CPT/HCPCS: J2270; J2550; J7030

== ENCOUNTER 2021-05-10 20:08 | Inpatient (IN) | payer MEDICAID ==
[~2021-05-10] VITALS: Ht 160 cm; Wt 85.4 kg
[2021-05-10 21:04] LABS: HEMATOCRIT 49.6 % (37.0-47.0); HEMOGLOBIN 16.3 g/dl (12.5-16.0); MEAN CELL VOLUME 91 fl (80.0-100.0); MEAN CORPUSCULAR HEMOGLOBIN 30 pg (27.0-31.0); MEAN CORPUSCULAR HGB CONC 33 g/dl (33.0-37.0); MEAN PLATELET VOLUME 9.7 fl (7.4-10.4); PLATELET COUNT 300 K/mm3 (130-400); RED BLOOD COUNT 5.43 M/mm3 (4.10-5.30); REDCELL DISTRIBUTION WIDTH-CV 13.1 % (11.5-14.5)
[2021-05-10 21:12] LABS: INR 0.9 (0.8-3.0); PROTHROMBIN TIME 10.3 SECONDS (9.7-12.8)
[2021-05-10 21:15] LABS: PARTIAL THROMBOPLASTIN TIME 33.3 SECONDS (26.0-37.0)
[2021-05-10 21:19] LABS: ALBUMIN 4.5 gm/dL (3.5-5.0); BILIRUBIN,TOTAL 0.2 mg/dL (0.2-1.2); CREATININE, serum 0.96 mg/dL (0.57-1.11); POTASSIUM 3.9 mmol/L (3.5-4.5); TOTAL PROTEIN 8.9 gm/dL (6.2-8.1)
[2021-05-10 21:36] LABS: BAND 5 % (0-10); EOSINOPHIL 1 % (0-4); LYMPHOCYTE 7 % (20.0-51.0); NEUTROPHILS 83 % (42.0-75.2); PLATELET ESTIMATE NORMAL (NORMAL)
[2021-05-11] MEDS ORDERED: VITAMIN C500 MG PO (01:13)
[2021-05-11] MEDS ORDERED: PRIL40 PO (01:13)
[2021-05-11] MEDS ORDERED: NATURAL IRON65 MG (01:13)
[2021-05-11] MEDS ORDERED: PHARMASSURE ZIN50 MG PO (01:14)
[2021-05-11] MEDS ORDERED: NIZORAL CREAM15 GM TP (01:15)
[2021-05-11] MEDS ORDERED: TOPAMAX25 M1 PO (01:15)
--- NOTE | 2021-05-11 02:23 | NUR ---
Patient arrived from ER. Rates pain to abdomen at a 9. Given PRN Dilaudid per orders. LR running at 100 mls/hr to IV site to left AC per orders. Denies SOB and dyspnea. LS CTA. Respirations even and unlabored. HRR. Capillary refill less than 3 seconds. Non-tenting skin turgor. BSAx4. Abdomen soft and non-tender. No edema. Voices no questions, needs, or concerns at this time. Received IV ABXs per orders. Resting in bed with call light within reach.
[2021-05-11 04:46] VITALS: BP 131/67; PULSE 96; TEMP 97.7
--- NOTE | 2021-05-11 05:34 | NUR ---
Patient received PRN Dilaudid as requested for level 8 pain to abdomen. Patient requesting PRN Phenergan. Lease Operator notified to mix in pharmacy, and notified that Zinc Sulfate was needed as well. Patient voiced understanding, and voices no further questions, needs, or concerns at this time. Resting in bed with call light within reach. Continues on IV fluids per orders.
[2021-05-11 07:15] VITALS: BP 133/87; PULSE 94; TEMP 98
--- NOTE | 2021-05-11 08:07 | NUR ---
Patient resting in bed. Patient states she has pain 6/10 but is better than before. Patient states she had emisis at 0630, no blood. Top of patients right foot has a bruise, patient states d/t pots falling on it at home. Performed assessment, obtained v/s, patient tolerated well.
--- NOTE | 2021-05-11 11:17 | NUR ---
Initial visit; Patient thanked Railroad Worker for looking in on her and offering God's blessings.
[2021-05-11 12:35] VITALS: BP 152/97; PULSE 100; TEMP 98.1
[2021-05-11 13:39] VITALS: BP 127/74; PULSE 93; TEMP 97.9
--- NOTE | 2021-05-11 14:04 | NUR ---
Primary nurse was assisted with [id number] patient care by [facility] [employer] student Vandana Harley and [employer] [employer] instructor Orquidea Cancino MSN, RN
--- NOTE | 2021-05-11 16:18 | NUR ---
Patient called this RN into the room to assess the blood in the toilet. Patient was getting into the shower and had a moderate amount of blood from her rectum. The patient stated that this was normal for her when she has a Crohn's flare-up. Hospitalist was notified and came to look at the quality and quantity of blood. Patient is receiving IV dilaudid for pain relief. Patient has not had any other issues, nor any complaints today.
[2021-05-11 16:53] VITALS: BP 138/83; PULSE 94; TEMP 98
--- NOTE | 2021-05-11 18:20 | NUR ---
Patient is currently experiencing worsening abdominal pain. PRN zofran was given for nausea and pharmacy was called for a dose of promethazine. Patient is currently requesting another dose of PRN dilaudid as well.
[2021-05-12 00:20] VITALS: BP 148/75; PULSE 91; TEMP 97.8
[2021-05-12 04:40] VITALS: BP 133/93; PULSE 90; TEMP 97.9
--- NOTE | 2021-05-12 08:02 | NUR ---
REPORT RECEIVED FROM ADEN HOPKINS. PT AWAKE/ALERT. COMPLAINED OF PAIN 01/04. MED ADMINISTERED. ZOFRAN ALSO ADMINISTERED FOR COMPLAINTS OF NAUSEA. PT DENIES ANY OTHER NEEDS AT THIS TIME. CALL ESPARZA IN REACH
[2021-05-12 08:04] VITALS: BP 127/73; PULSE 91; TEMP 98
[2021-05-12 09:17] LABS: BASO # 0.1 K/mm3 (0.0-0.2); BASO % 0.5 % (0.0-2.0); GRAN # 9.1 K/mm3 (1.4-6.5); GRAN % 82.8 % (42.2-75.2); HEMATOCRIT 44.1 % (37.0-47.0); HEMOGLOBIN 14.4 g/dl (12.5-16.0); LYMPH # 1.3 K/mm3 (1.2-3.4); LYMPH % 11.4 % (20.0-51.0); MEAN CELL VOLUME 91 fl (80.0-100.0); MEAN CORPUSCULAR HEMOGLOBIN 30 pg (27.0-31.0); MEAN CORPUSCULAR HGB CONC 33 g/dl (33.0-37.0); MEAN PLATELET VOLUME 9.3 fl (7.4-10.4); MONO # 0.5 K/mm3 (0.1-0.6); MONO % 4.8 % (1.7-9.3); PLATELET COUNT 272 K/mm3 (130-400); RED BLOOD COUNT 4.83 M/mm3 (4.10-5.30); REDCELL DISTRIBUTION WIDTH-CV 13.1 % (11.5-14.5)
[2021-05-12 09:37] LABS: CALCIUM 9.7 mg/dL (8.4-10.2); CREATININE, serum 0.74 mg/dL (0.57-1.11)
[2021-05-12 11:41] VITALS: BP 146/87; PULSE 80; TEMP 97.9
--- NOTE | 2021-05-12 15:26 | NUR ---
Plan is to return to [facility] with Jani [phone] Secondary Contact is DTR Martín [phone]. Patient reports that her PCP is Dr. Melchor, Dr. Matta, and Amrita Larsen at [facility]. Patient rpeorts that the use [facility] in [place] for medicaitons and patient has a cane for mobiliy as needed. Patient shares that they have also seen Dr. Mcmillan-[facility]. Patient denies having any other DME or concern with obtaining medications. to transport home. WIll follow. Educated on services with [employer].
[2021-05-12 17:10] VITALS: BP 135/78; PULSE 94; TEMP 98.1
--- NOTE | 2021-05-12 18:12 | NUR ---
PT HAD UNEVENTFUL SHIFT. HAS NO NEEDS AT THIS TIME. CALL ESPARZA IN REACH
[2021-05-12 19:53] VITALS: BP 137/81; PULSE 94; TEMP 98.2
[2021-05-13 00:36] VITALS: BP 125/78; PULSE 90; TEMP 97.9
[2021-05-13 04:36] VITALS: BP 128/62; PULSE 68; TEMP 98.2
--- NOTE | 2021-05-13 07:27 | NUR ---
RECEIVED REPORT FROM ADEN HOPKINS. PT AWAKE/ALERT. LAB IN ROOM. CALL ESPARZA IN REACH. PT HAS NO NEEDS AT THIS TIME
[2021-05-13 08:15] VITALS: BP 141/79; PULSE 86; TEMP 98
[2021-05-13 09:31] LABS: CALCIUM 9.2 mg/dL (8.4-10.2); CREATININE, serum 0.68 mg/dL (0.57-1.11); MAGNESIUM 1.8 mg/dL (1.6-2.6); POTASSIUM 3.5 mmol/L (3.5-4.5)
[2021-05-13 09:45] LABS: BASO % 0.2 % (0.0-2.0); GRAN # 12.4 K/mm3 (1.4-6.5); GRAN % 81.2 % (42.2-75.2); HEMATOCRIT 40.5 % (37.0-47.0); HEMOGLOBIN 13.5 g/dl (12.5-16.0); LYMPH # 1.5 K/mm3 (1.2-3.4); LYMPH % 9.7 % (20.0-51.0); MEAN CELL VOLUME 90 fl (80.0-100.0); MEAN CORPUSCULAR HEMOGLOBIN 30 pg (27.0-31.0); MEAN CORPUSCULAR HGB CONC 33 g/dl (33.0-37.0); MEAN PLATELET VOLUME 9.9 fl (7.4-10.4); MONO # 1.3 K/mm3 (0.1-0.6); MONO % 8.4 % (1.7-9.3); RED BLOOD COUNT 4.51 M/mm3 (4.10-5.30); REDCELL DISTRIBUTION WIDTH-CV 12.9 % (11.5-14.5)
[2021-05-13 10:26] LABS: PLATELET COUNT 148 K/mm3 (130-400)
[2021-05-13 12:45] VITALS: BP 138/100; PULSE 101; TEMP 98.1
--- NOTE | 2021-05-13 13:28 | NUR ---
PT ASSESSMENT PERFORMED AT 0900. PT SHOWERED THIS AFTERNOON. IN BED RESTING
[2021-05-13 16:25] VITALS: BP 144/82; PULSE 90; TEMP 98
--- NOTE | 2021-05-13 17:35 | NUR ---
PT HAD UNEVENTFUL SHIFT. MEDS ADMINISTERED FOR ABD PAIN. PT HAS NO OTHER NEEDS AT THIS TIME. CALL ESPARZA IN REACH.
[2021-05-13 21:56] VITALS: BP 145/89; PULSE 97; TEMP 98.1
--- NOTE | 2021-05-13 22:31 | NUR ---
Patient assessed. Has been recieving PRN Dilaudid every two hours so far this shift for pain to abdomen. Has received PRN Zofran and Phenergan for nausea. No emesis so far this shift. Denies having noticeable blood in stool. Given PRN Restoril as requested for sleep. Peripheral IV to left AC with fluids runnign per orders. Continues on IV ABXs per orders. Voices no further questions, needs, or concerns at this time. Resting in bed with call light within reach.
[2021-05-14] VITALS (8 sets, daily range): BP systolic 125–151; BP diastolic 57–90; PULSE 59–104; TEMP 97.7–98.7
--- NOTE | 2021-05-14 06:19 | NUR ---
Patient has been receiving PRN Dilaudid for pain as requested. IV fluids continue per orders. Denies having nausea this morning. Voices no questions, needs, or concerns at this time. Resting in bed with call light within reach.
--- NOTE | 2021-05-14 07:00 | NUR ---
Report received from ADEN Cano. Pt in bed resting, denies needs, will conitnue to monitor.
--- NOTE | 2021-05-14 09:00 | NUR ---
Assessment charted. Pt in bed resting, states pain is 6/10 to abd and needs IV PRN pain meds to help with pain. Pt up ad vianca, reports liquid stools times 1. Denies needs, will continue to monitor.
[2021-05-14 10:24] LABS: BASO # 0.1 K/mm3 (0.0-0.2); BASO % 0.3 % (0.0-2.0); EOS % 0.1 % (0-4.0); GRAN # 11.6 K/mm3 (1.4-6.5); GRAN % 78.1 % (42.2-75.2); HEMATOCRIT 40.1 % (37.0-47.0); HEMOGLOBIN 13.4 g/dl (12.5-16.0); LYMPH # 2.1 K/mm3 (1.2-3.4); LYMPH % 14.3 % (20.0-51.0); MEAN CELL VOLUME 91 fl (80.0-100.0); MEAN CORPUSCULAR HEMOGLOBIN 30 pg (27.0-31.0); MEAN CORPUSCULAR HGB CONC 33 g/dl (33.0-37.0); MEAN PLATELET VOLUME 9.3 fl (7.4-10.4); MONO % 6.5 % (1.7-9.3); RED BLOOD COUNT 4.42 M/mm3 (4.10-5.30)
[2021-05-14 10:56] LABS: PLATELET COUNT 281 K/mm3 (130-400)
[2021-05-14 11:09] LABS: CALCIUM 9.1 mg/dL (8.4-10.2); CREATININE, serum 0.73 mg/dL (0.57-1.11); POTASSIUM 3.5 mmol/L (3.5-4.5)
--- NOTE | 2021-05-14 19:17 | NUR ---
Pt has done well over shift. Pt resting in bed or chair most of day. PRN pain meds given per reqeust. Denies needs, report given to nightshift nurse who will resume care.
--- NOTE | 2021-05-14 22:07 | NUR ---
Patient alert and oriented. Patient reports moderate pain to her abdomen area. Patient reports having watery stool tonight requesting anti-diarrhea med. PRN imodium given per patient request. PRN percocet given at around 10 pm for pain. Call light in reach. Will continue to monitor.
[2021-05-15 05:59] VITALS: BP 129/82; PULSE 86; TEMP 98
[2021-05-15 07:08] LABS: BASO % 0.3 % (0.0-2.0); EOS # 0.1 K/mm3 (0.0-0.7); EOS % 0.5 % (0-4.0); GRAN # 8.1 K/mm3 (1.4-6.5); GRAN % 62.4 % (42.2-75.2); HEMOGLOBIN 13.3 g/dl (12.5-16.0); LYMPH # 3.6 K/mm3 (1.2-3.4); LYMPH % 27.7 % (20.0-51.0); MEAN CELL VOLUME 91 fl (80.0-100.0); MEAN CORPUSCULAR HEMOGLOBIN 30 pg (27.0-31.0); MEAN CORPUSCULAR HGB CONC 32 g/dl (33.0-37.0); MEAN PLATELET VOLUME 9.2 fl (7.4-10.4); MONO % 8.1 % (1.7-9.3); PLATELET COUNT 277 K/mm3 (130-400); RED BLOOD COUNT 4.49 M/mm3 (4.10-5.30); REDCELL DISTRIBUTION WIDTH-CV 13.1 % (11.5-14.5)
[2021-05-15 07:27] LABS: CREATININE, serum 0.73 mg/dL (0.57-1.11)
[2021-05-15 07:29] LABS: POTASSIUM 2.9 mmol/L (3.5-4.5)
[2021-05-15 07:59] LABS: MAGNESIUM 2.1 mg/dL (1.6-2.6); PHOSPHOROUS 4.1 mg/dL (2.3-4.7)
[2021-05-15 08:00] VITALS: BP 141/78; PULSE 81; TEMP 98
--- NOTE | 2021-05-15 08:24 | NUR ---
REPORT RECEIVED FROM ADEN RDEDY. PT AWAKE/ALERT RESTING IN BED. DENIES ANY NEEDS AT THIS TIME. PAIN 5/10, BUT DECLINES INTERVENTIONS. CALL ESPARZA IN REACH
[2021-05-15] MEDS ORDERED: ZOFRAN ODT8 MG PO (09:15)
[2021-05-15] MEDS ORDERED: PREDNISONE20 MG PO (09:16)
[2021-05-15] MEDS ORDERED: PROBIOTIC BLEN1 EACH PO (09:16)
[2021-05-15] MEDS ORDERED: FLAGYL500 MG PO (09:17)
[2021-05-15 12:46] VITALS: BP 130/84; PULSE 94; TEMP 98.3
[2021-05-15] MEDS ORDERED: K-DUR20 MEQ PO (13:39)
--- NOTE | 2021-05-15 14:24 | NUR ---
molding utility worker checked needs before dc. Patient has no concerns at this moment.
[2021-05-15] MEDS ORDERED: QUESTRAN4 GM/9 GM PO (14:33)
--- NOTE | 2021-05-15 15:36 | NUR ---
DISCHARGE INSTRUCTIONS REVIEWED WITH PATIENT. IV DC'D. QUESTIONS INVITED AND ANSWERED. NO NEEDS AT THIS TIME
== END 2021-05-15 15:30 | disposition home or self-care (01) | DRG 386 ==
LOC: COL.ER 20:08 → MEDICAL 23:36
PROVIDERS: Internal Medicine; Physician Assistant; Student in an Organized Health Care Education/Training Program; ADMIT Family Medicine
DX: K50.90 Crohn's disease, unspecified, without complications (principal); M35.2 Behcet's disease; Q89.3 Situs inversus; K92.0 Hematemesis; K92.1 Melena; R65.10 Systemic inflammatory response syndrome (SIRS) of non-infectious origin without acute organ dysfunction; I10 Essential (primary) hypertension; E78.5 Hyperlipidemia, unspecified; K21.9 Gastro-esophageal reflux disease without esophagitis; F32.A Depression, unspecified; Z90.49 Acquired absence of other specified parts of digestive tract; K52.9 Noninfective gastroenteritis and colitis, unspecified; G43.909 Migraine, unspecified, not intractable, without status migrainosus; G47.00 Insomnia, unspecified; J32.9 Chronic sinusitis, unspecified; E87.6 Hypokalemia
CPT/HCPCS: 99222-AI; 99231-AI; 99232-AI; 99233-AI; 99239; G0378; J0692; J1170; J2270; J2405; J2550; J2930; J7030; J7120; J7512; Q9967

== ENCOUNTER → 2021-07-20 | Outpatient (CLI) | payer MEDICAID ==
[~2021-07-20] MED LIST changes: +K-DUR20 MEQ PO; +NATURAL IRON65 MG; +NIZORAL CREAM15 GM TP; +PHARMASSURE ZIN50 MG PO; +PROBIOTIC BLEN1 EACH PO; +QUESTRAN4 GM/9 GM PO; +TOPAMAX25 M1 PO; +ZOFRAN ODT8 MG PO
[2021-07-20 10:59] LABS: BASO # 0.1 K/mm3 (0.0-0.2); BASO % 1.1 % (0.0-2.0); EOS # 0.2 K/mm3 (0.0-0.7); EOS % 2.9 % (0.0-4.0); GRAN # 3.8 K/mm3 (1.4-6.5); GRAN % 57.6 % (42.2-75.2); HEMATOCRIT 42.5 % (37.0-47.0); HEMOGLOBIN 14.1 g/dl (12.5-16.0); LYMPH # 1.9 K/mm3 (1.2-3.4); LYMPH % 27.9 % (20.0-51.0); MEAN CELL VOLUME 93 fl (80.0-100.0); MEAN CORPUSCULAR HEMOGLOBIN 31 pg (27-31); MEAN CORPUSCULAR HGB CONC 33 g/dl (33.0-37.0); MEAN PLATELET VOLUME 9.2 fl (7.4-10.4); MONO # 0.6 K/mm3 (0.1-0.6); MONO % 9.7 % (1.7-9.3); PLATELET COUNT 234 K/mm3 (130-400); RED BLOOD COUNT 4.59 M/mm3 (4.10-5.30); REDCELL DISTRIBUTION WIDTH-CV 14.6 % (11.5-14.5)
== END ==
LOC: COL.LAB 10:31
DX: Z51.81 Encounter for therapeutic drug level monitoring (principal); M19.90 Unspecified osteoarthritis, unspecified site

== ENCOUNTER 2022-02-27 18:01 | Emergency (ER) | payer MEDICARE, MEDICAID ==
[~2022-02-27] VITALS: Ht 160 cm; Wt 90.9 kg
[2022-02-27 18:15] VITALS: TEMP 98.4
[2022-02-27 19:04] LABS: BASO % 0.3 % (0.0-2.0); EOS # 0.2 K/mm3 (0.0-0.7); GRAN # 5.8 K/mm3 (1.4-6.5); GRAN % 63.6 % (42.2-75.2); HEMOGLOBIN 13.9 g/dl (12.5-16.0); LYMPH # 2.1 K/mm3 (1.2-3.4); LYMPH % 23.2 % (20.0-51.0); MEAN CELL VOLUME 93 fl (80.0-100.0); MEAN CORPUSCULAR HEMOGLOBIN 31 pg (27-31); MEAN CORPUSCULAR HGB CONC 33 g/dl (33.0-37.0); MEAN PLATELET VOLUME 9.6 fl (7.4-10.4); MONO % 10.6 % (1.7-9.3); PLATELET COUNT 237 K/mm3 (130-400); RED BLOOD COUNT 4.52 M/mm3 (4.10-5.30); REDCELL DISTRIBUTION WIDTH-CV 13.3 % (11.5-14.5)
[2022-02-27 19:26] LABS: ALBUMIN 3.6 gm/dL (3.5-5.0); BILIRUBIN,TOTAL 0.4 mg/dL (0.2-1.2); CALCIUM 8.5 mg/dL (8.4-10.2); CREATININE, serum 0.77 mg/dL (0.57-1.11); POTASSIUM 3.6 mmol/L (3.5-4.5); TOTAL PROTEIN 7.1 gm/dL (6.2-8.1)
[2022-02-27] MEDS ORDERED: REGLAN 10MG10 MG/TAB PO (21:22)
[2022-02-27 21:33] VITALS: BP 142/90; PULSE 98
== END 2022-02-27 21:33 | disposition home or self-care (01) ==
LOC: COL.ER 18:01
PROVIDERS: Emergency Medicine
DX: K50.90 Crohn's disease, unspecified, without complications (principal); E86.0 Dehydration; Z90.49 Acquired absence of other specified parts of digestive tract; Z79.899 Other long term (current) drug therapy; Z28.310 Unvaccinated for COVID-19
CPT/HCPCS: J2270; J2765; J7030

== ENCOUNTER → 2022-06-07 | Outpatient (CLI) | payer MEDICARE, MEDICAID ==
[~2022-06-07] MED LIST changes: +REGLAN 10MG10 MG/TAB PO
== END ==
LOC: MC.RAD 08:42
DX: N60.01 Solitary cyst of right breast (principal)

== ENCOUNTER 2022-08-26 14:22 | Outpatient (CLI) | payer MEDICARE, MEDICAID ==
[~2022-08-26] VITALS: Ht 160 cm; Wt 94.4 kg
[2022-08-26 14:00] VITALS: BP 125/82; PULSE 74; TEMP 97.6
[2022-08-26 15:04] LABS: BASO % 0.5 % (0.0-2.0); EOS # 0.3 K/mm3 (0.0-0.7); EOS % 3.8 % (0.0-4.0); GRAN # 4.2 K/mm3 (1.4-6.5); GRAN % 57.4 % (42.2-75.2); HEMOGLOBIN 13.8 g/dl (12.5-16.0); LYMPH # 2.2 K/mm3 (1.2-3.4); LYMPH % 30.3 % (20.0-51.0); MEAN CELL VOLUME 90 fl (80.0-100.0); MEAN CORPUSCULAR HEMOGLOBIN 30 pg (27-31); MEAN CORPUSCULAR HGB CONC 34 g/dl (33.0-37.0); MEAN PLATELET VOLUME 9.8 fl (7.4-10.4); MONO # 0.6 K/mm3 (0.1-0.6); MONO % 7.9 % (1.7-9.3); PLATELET COUNT 204 K/mm3 (130-400); RED BLOOD COUNT 4.58 M/mm3 (4.10-5.30); REDCELL DISTRIBUTION WIDTH-CV 13.3 % (11.5-14.5)
[2022-08-26 15:16] LABS: CALCIUM 9.2 mg/dL (8.4-10.2); CREATININE, serum 0.8 mg/dL (0.57-1.11); POTASSIUM 3.6 mmol/L (3.5-4.5)
[2022-08-26] MEDS ORDERED: ZOFRAN8 MG PO (16:10)
[2022-08-26] MEDS ORDERED: K-DUR20 MEQ PO (16:12)
[2022-08-26] MEDS ORDERED: UBRELVY100 MG PO (16:14)
[2022-08-26] MEDS ORDERED: METHOTREXA2.5 MG/TAB PO (16:14)
[2022-08-26] MEDS ORDERED: FLEXERIL5 MG PO (16:15)
--- NOTE | 2022-08-26 16:40 | NUR ---
PT FINISHED INFUSION. STATES SHE IS FEELING MUCH BETTER ALREADY. IV D/C'D PT AMBULATES NORMALLY TO ELEVATOR
== END 2022-08-26 16:40 | disposition home or self-care (01) ==
LOC: EUO 14:22
PROVIDERS: Emergency Medicine
DX: E86.0 Dehydration (principal)
CPT/HCPCS: J7120